=== PATIENT | female | born 1985 | race Caucasian/White ===

== ENCOUNTER 2020-07-22 07:54 | Emergency (ER) | payer OTHER ==
[~2020-07-22] VITALS: Ht 162.6 cm; Wt 77.3 kg
[2020-07-22 07:56] VITALS: BP 124/85
== END 2020-07-22 08:15 | disposition left against medical advice (07) ==
LOC: EMS 08:01
DX: R51.9 Headache, unspecified (principal); Z53.21 Procedure and treatment not carried out due to patient leaving prior to being seen by health care provider
CPT/HCPCS: 82948; 82962